=== PATIENT | female | born 1995 | race Caucasian/White ===

== ENCOUNTER 2017-02-21 17:07 | Emergency (ER) | payer MEDICAID ==
[2014-12-12 17:08] VITALS: BMI 30.7
[~2017-02-21 17:07] MED LIST: DEMEROL50 MG PO; IBUPROFEN600 MG PO; PRENATAL COMPLE1 TAB PO
[2017-02-21 18:19] LABS: APPEARANCE TURBID (CLEAR); BILIRUBIN NEGATIVE (NEGATIVE); COLOR YELLOW (YELLOW); GLUCOSE NEGATIVE (NEGATIVE); KETONE NEGATIVE (NEGATIVE); LEUKOCYTE ESTERASE 2+ (NEGATIVE); NITRITE POSITIVE (NEGATIVE); PROTEIN 3+ mg/dL (NEGATIVE); UROBILINOGEN NORMAL (NORMAL)
[2017-02-21 18:21] LABS: AMORPHOUS SEDIMENT <1+ /lpf (NONE SEEN); BACTERIA MANY /hpf (NONE SEEN); EPITHELIAL CELLS 25-50 /hpf (0-5); GRANULAR CAST NONE SEEN /lpf (NONE SEEN); HYALINE CAST NONE SEEN /lpf (NONE SEEN); MUCUS <1+ /lpf (NONE SEEN); RED CELL CAST NONE SEEN /lpf (NONE SEEN); RED CELLS - URINE 0-5 /hpf (0-5); SPERMATOZOA NONE SEEN /hpf (NONE SEEN); WAXY CAST NONE SEEN /lpf (NONE SEEN); WHITE CELLS - URINE 25-50 /hpf (0-5); YEAST NONE SEEN /hpf (NONE SEEN)
== END 2017-02-21 20:17 | disposition home or self-care (01) ==
LOC: D.ER 17:07
PROVIDERS: Emergency Medicine
DX: N39.0 Urinary tract infection, site not specified (principal); R11.0 Nausea; R10.2 Pelvic and perineal pain; R39.11 Hesitancy of micturition; R30.0 Dysuria; F17.200 Nicotine dependence, unspecified, uncomplicated

== ENCOUNTER 2017-06-02 17:37 | Emergency (ER) | payer MEDICAID ==
[2014-12-12 17:08] VITALS: BMI 30.7
[2017-06-02 19:43] LABS: BASOPHILS 0.2 % (0-2); EOSINOPHILS 3.5 % (0-7); HEMOGLOBIN 12.7 g/dL (12-16); IMMATURE GRANULOCYTES 0.2 % (0-5); LYMPHOCYTES 27.6 % (15-50); MCH 31.3 pg (26.0-34.0); MCHC 32.6 g/dL (31.0-37.0); MCV 96.1 fL (80.0-100.0); MEAN PLATELET VOLUME 10.5 fL (7.4-10.4); MONOCYTES 11.9 % (2-11); NEUTROPHILS 56.6 % (40-80); RBC 4.06 10x6/uL (4.00-5.40); RDW 12.8 % (11.5-14.5); WBC 5.7 10x3/uL (4.8-10.8)
[2017-06-02 19:49] LABS: PLATELET COUNT 205 10x3/uL (130-400)
[2017-06-02 19:53] LABS: CALC OSMOLALITY 278 mosm/kg (275-300); CALCIUM 9.5 mg/dL (8.5-10.1); CARBON DIOXIDE 28.5 mmol/L (21.0-32.0); CHLORIDE - SERUM 103 mmol/L (98-107); CREATININE - SERUM 0.7 mg/dL (0.6-1.3); GLUCOSE 81 mg/dL (74-106); POTASSIUM - SERUM 3.9 mmol/L (3.5-5.1); SODIUM 140 mmol/L (136-145); UREA NITROGEN 14 mg/dL (7-18); eGFR NON AFRICAN AMERICAN > 90 mL/min (90-120)
[2017-06-02 20:00] LABS: APPEARANCE HAZY (CLEAR); COLOR YELLOW (YELLOW); SPECIFIC GRAVITY 1.015 (1.005-1.020)
[2017-06-02 20:01] LABS: BILIRUBIN NEGATIVE (NEGATIVE); GLUCOSE NEGATIVE (NEGATIVE); KETONE NEGATIVE (NEGATIVE); NITRITE NEGATIVE (NEGATIVE); PROTEIN NEGATIVE (NEGATIVE); UROBILINOGEN NORMAL (NORMAL)
[2017-06-02 20:03] LABS: BACTERIA MODERATE /hpf (NONE SEEN); RED CELLS - URINE 0-5 /hpf (0-5)
[2017-06-02 20:06] LABS: WHITE CELLS - URINE 25-50 /hpf (0-5)
== END 2017-06-02 20:47 | disposition home or self-care (01) ==
LOC: D.ER 17:37
PROVIDERS: Nurse Practitioner Family
DX: N39.0 Urinary tract infection, site not specified (principal); M54.9 Dorsalgia, unspecified

== ENCOUNTER 2017-07-31 15:09 | Emergency (ER) | payer MEDICAID ==
[2014-12-12 17:08] VITALS: BMI 30.7
== END 2017-07-31 17:19 | disposition home or self-care (01) ==
LOC: D.ER 15:09
DX: H66.91 Otitis media, unspecified, right ear (principal)

== ENCOUNTER 2017-08-25 08:54 | Emergency (ER) | payer MEDICAID ==
[2014-12-12 17:08] VITALS: BMI 30.7
[2017-08-25 09:26] LABS: APPEARANCE CLEAR (CLEAR); BILIRUBIN NEGATIVE (NEGATIVE); COLOR YELLOW (YELLOW); GLUCOSE NEGATIVE (NEGATIVE); KETONE NEGATIVE (NEGATIVE); NITRITE NEGATIVE (NEGATIVE); PROTEIN NEGATIVE (NEGATIVE); SPECIFIC GRAVITY 1.015 (1.005-1.020); UROBILINOGEN NORMAL (NORMAL)
[2017-08-25 09:28] LABS: BACTERIA FEW /hpf (NONE SEEN); EPITHELIAL CELLS 0-5 /hpf (0-5); MUCUS <1+ /lpf (NONE SEEN); RED CELLS - URINE 0-5 /hpf (0-5); WHITE CELLS - URINE 0-5 /hpf (0-5)
[2017-08-25 09:32] LABS: BASOPHILS 0.2 % (0-2); EOSINOPHILS 3.1 % (0-7); HEMATOCRIT 38.2 % (36.0-48.0); HEMOGLOBIN 12.2 g/dL (12-16); LYMPHOCYTES 32.3 % (15-50); MCH 30.7 pg (26.0-34.0); MCHC 31.9 g/dL (31.0-37.0); MCV 96.2 fL (80.0-100.0); MEAN PLATELET VOLUME 9.9 fL (7.4-10.4); MONOCYTES 11.2 % (2-11); NEUTROPHILS 53.2 % (40-80); PLATELET COUNT 179 10x3/uL (130-400); RBC 3.97 10x6/uL (4.00-5.40); RDW 12.8 % (11.5-14.5); WBC 4.9 10x3/uL (4.8-10.8)
[2017-08-25 09:50] LABS: ALBUMIN 3.8 g/dL (3.4-5.0); ALKALINE PHOSPHATASE 50 U/L (46-116); ALT (SGPT) 29 U/L (10-68); AMYLASE - SERUM 33 U/L (25-115); BILIRUBIN - TOTAL 1.06 mg/dL (0.2-1.3); CALC OSMOLALITY 284 mosm/kg (275-300); CALCIUM 8.4 mg/dL (8.5-10.1); CARBON DIOXIDE 27.6 mmol/L (21.0-32.0); CHLORIDE - SERUM 107 mmol/L (98-107); CREATININE - SERUM 0.7 mg/dL (0.6-1.3); GLUCOSE 89 mg/dL (74-106); LIPASE 122 U/L (73-393); POTASSIUM - SERUM 3.9 mmol/L (3.5-5.1); PROTEIN - SERUM 6.8 g/dL (6.4-8.2); SODIUM 142 mmol/L (136-145); UREA NITROGEN 20 mg/dL (7-18); eGFR NON AFRICAN AMERICAN > 90 mL/min (90-120)
[2017-08-25 10:15] LABS: HCG URINE NEGATIVE (NEGATIVE)
[2017-08-25 10:19] LABS: UDS - AMPHET NEGATIVE QUAL (NEGATIVE); UDS - BARB NEGATIVE QUAL (NEGATIVE); UDS - BENZO NEGATIVE QUAL (NEGATIVE); UDS - COCAINE NEGATIVE QUAL (NEGATIVE); UDS - OPIATE NEGATIVE QUAL (NEGATIVE); UDS - PCP NEGATIVE QUAL (NEGATIVE); UDS - THC POSITIVE QUAL (NEGATIVE)
== END 2017-08-25 13:00 | disposition home or self-care (01) ==
LOC: D.ER 08:54
PROVIDERS: Family Medicine
DX: M54.5 Low back pain (principal)

== ENCOUNTER → 2018-04-18 08:44 | Outpatient (CLI) | payer MEDICAID ==
[2014-12-12 17:08] VITALS: BMI 30.7
== END | disposition home or self-care (01) ==
LOC: D.US 08:00
DX: N63.13 Unspecified lump in the right breast, lower outer quadrant (principal)

== ENCOUNTER 2020-10-16 12:37 | Emergency (ER) | payer MEDICAID ==
[~2020-10-16] VITALS: Ht 172.7 cm; Wt 68.2 kg
[2020-10-16 12:44] VITALS: Ht 172.7 cm; Wt 68.2 kg
[2020-10-16] MEDS ORDERED: BACTRIM DS TAB1 EAC1 PO (12:46)
[2020-10-16] MEDS ORDERED: CEPHALEXIN500 M1 PO (13:14)
[2020-10-16] MEDS ORDERED: DOXYCYCLINE HY100 M2 PO (13:14)
[2020-10-16] MEDS ORDERED: MECLIZINE HCL25 MG PO (13:16)
[2020-10-16 13:30] VITALS: BP 112/68
== END 2020-10-16 13:30 | disposition home or self-care (01) ==
LOC: D.ER 12:37
DX: H66.92 Otitis media, unspecified, left ear (principal); R42 Dizziness and giddiness; R11.2 Nausea with vomiting, unspecified; Z72.0 Tobacco use

== ENCOUNTER 2020-10-23 13:43 | Emergency (ER) | payer MEDICAID ==
[~2020-10-23] VITALS: Ht 172.7 cm; Wt 68.2 kg
[~2020-10-23 13:43] MED LIST changes: +BACTRIM DS TAB1 EAC1 PO; +CEPHALEXIN500 M1 PO; +DOXYCYCLINE HY100 M2 PO; +MECLIZINE HCL25 MG PO
[2020-10-23 14:02] VITALS: Ht 172.7 cm; Wt 68.2 kg
[2020-10-23] MEDS ORDERED: IBUPROFEN800 MG PO (14:05)
[2020-10-23 14:18] LABS: BASOPHILS 0.4 % (0-2); EOSINOPHILS 1.2 % (0-7); HEMATOCRIT 42.8 % (36.0-48.0); LYMPHOCYTE ABS# 2.06 10x3/uL (1.18-3.74); LYMPHOCYTES 36.2 % (15-50); MCH 31.7 pg (26.0-34.0); MCHC 32.7 g/dL (31.0-37.0); MCV 96.8 fL (80.0-100.0); MEAN PLATELET VOLUME 9.6 fL (7.4-10.4); MONOCYTES 10.4 % (2-11); NEUTROPHIL ABS# 2.95 10x3/uL (1.56-6.13); NEUTROPHILS 51.8 % (40-80); RBC 4.42 10x6/uL (4.00-5.40); RDW 12.4 % (11.5-14.5); WBC 5.7 10x3/uL (4.8-10.8)
[2020-10-23 14:25] LABS: PLATELET COUNT 217 10x3/uL (130-400)
[2020-10-23 14:28] LABS: CALC OSMOLALITY 277 mosm/kg (275-300); CALCIUM 8.8 mg/dL (8.5-10.1); CARBON DIOXIDE 27.5 mmol/L (21.0-32.0); CHLORIDE - SERUM 104 mmol/L (98-107); CREATININE - SERUM 0.8 mg/dL (0.6-1.3); GLUCOSE 87 mg/dL (74-106); POTASSIUM - SERUM 3.8 mmol/L (3.5-5.1); SODIUM 139 mmol/L (136-145); UREA NITROGEN 16 mg/dL (7-18); eGFR NON AFRICAN AMERICAN > 90 mL/min (90-120)
[2020-10-23 14:34] LABS: ALBUMIN 4.2 g/dL (3.4-5.0); ALKALINE PHOSPHATASE 60 U/L (30-120); ALT (SGPT) 31 U/L (10-68); BILIRUBIN - TOTAL 0.84 mg/dL (0.2-1.3); PROTEIN - SERUM 7.6 g/dL (6.4-8.2)
[2020-10-23 16:49] VITALS: BP 112/73
== END 2020-10-23 17:30 | disposition other institution (70) ==
LOC: D.ER 13:43
PROVIDERS: Family Medicine
DX: H70.90 Unspecified mastoiditis, unspecified ear (principal); H66.91 Otitis media, unspecified, right ear